=== PATIENT | male | born 1985 | race Two or more races ===

== ENCOUNTER 2024-04-15 05:35 | Emergency (ER) | payer SELFPAY ==
[~2024-04-15] VITALS: Ht 188 cm; Wt 133.8 kg
[2024-04-15] MEDS ORDERED: ACETAMINOPHEN ES 500 MG TABLET ONE ×2 (06:34→06:57)
[2024-04-15] MEDS: IV NS 0.9% 1,000 ML BAG IV ONE (06:52)
[2024-04-15] MEDS: ACETAMINOPHEN ES 500 MG TABLET PO ONE (06:52)
[2024-04-15 07:02] LABS: BASOPHILS % (AUTO) 0.3 % (0.0-2.0); EOSINOPHILS # (AUTO) 0.1 K/uL (0.0-0.7); EOSINOPHILS % (AUTO) 0.8 % (0.0-6.0); HEMATOCRIT 44 % (39-51); HEMOGLOBIN 14.6 g/dL (13.5-17.5); LYMPHOCYTES # (AUTO) 1.3 K/uL (0.8-4.8); LYMPHOCYTES % (AUTO) 12.7 % (20.0-44.0); MEAN CORPUSCULAR HEMOGLOBIN 30 PG (26.0-33.0); MEAN CORPUSCULAR HGB CONC 33 g/dl (31.0-36.0); MEAN CORPUSCULAR VOLUME 90 fL (80-96); MONOCYTES # (AUTO) 0.6 K/uL (0.1-1.30); NEUTROPHILS # (AUTO) 8.4 K/uL (1.8-8.9); NEUTROPHILS % (AUTO) 80.2 % (43.0-81.0); PLATELET COUNT (AUTO) 251 K/uL (150-450); RED BLOOD CELL COUNT(AUTO) 4.84 MIL/uL (4.5-6.0); WHITE BLOOD COUNT (AUTO) 10.5 K/uL (4.3-11.0)
[2024-04-15 07:38] LABS: CALCIUM, SERUM 8.7 mg/dL (8.5-10.1); CARBON DIOXIDE 32 mmol/L (21-32); CHLORIDE 102 mmol/L (98-107); GLUCOSE 105 mg/dL (74-106); POTASSIUM 2.8 mmol/L (3.5-5.1); SODIUM SERUM 138 mmol/L (136-145); UREA NITROGEN, BLOOD 14 mg/dL (7-18)
[2024-04-15 07:54] LABS: ALANINE AMINOTRANSFERASE 23 U/L (12-78); ALBUMIN 3.5 g/dL (3.4-5.0); ALCOHOL, BLOOD < 3 mg/dL (0-10); ALKALINE PHOSPHATASE 73 U/L (46-116); ASPARTATE AMINOTRANSFERASE 26 U/L (15-37); BILIRUBIN,DIRECT 0.2 mg/dL (0.0-0.2); TOTAL PROTEIN, SERUM 7.2 g/dL (6.4-8.2)
[2024-04-15] MEDS ORDERED: IV NS 0.9% 250 ML IV ONE (07:58)
[2024-04-15] MEDS ORDERED: IOHEXOL-300 100 ML VIAL IV ONE (07:58)
[2024-04-15] MEDS ORDERED: POTASSIUM CHLORIDE 20 MEQ TAB.PRT.SR PO ONE (08:42)
[2024-04-15] MEDS: POTASSIUM CHLORIDE 20 MEQ TAB.PRT.SR PO ONE (08:54)
[2024-04-15] MEDS ORDERED: CYCL5TAB PO (09:36)
[2024-04-15] MEDS ORDERED: IBUP-1955 PO (09:36)
[2024-04-15] MEDS ORDERED: KETOROLAC TROMETHAMINE INJ 30 MG/ML VIAL ONE (10:20)
[2024-04-15] MEDS ORDERED: KETOROLAC TROMETHAMINE 15 MG/ML VIAL ONE (10:21)
[2024-04-15] MEDS: KETOROLAC TROMETHAMINE 15 MG/ML VIAL IV ONE (10:27)
[2024-04-15 15:32] VITALS: BP 145/81; TEMP 98.4; O2SAT 99
== END 2024-04-15 15:32 | disposition home or self-care (01) ==
LOC: ER 05:37
DX: R07.89 Other chest pain (principal); M54.9 Dorsalgia, unspecified; E87.6 Hypokalemia; R10.9 Unspecified abdominal pain; Z60.2 Problems related to living alone; V89.2XXA Person injured in unspecified motor-vehicle accident, traffic, initial encounter; Y93.89 Activity, other specified; Y92.89 Other specified places as the place of occurrence of the external cause; Y99.8 Other external cause status
CPT/HCPCS: 99285; 96360; 72125; 71260; 70450; 74177; 85025; 80048; 80076; 36415; 80320; J7030; J7050; Q9967; J1885; G0480

== ENCOUNTER 2024-08-14 13:30 | Emergency (ER) | payer MEDICAID, OTHER ==
[~2024-08-14] VITALS: Ht 188 cm; Wt 136.1 kg
[~2024-08-14 13:30] MED LIST: CYCL5TAB PO; IBUP-1955 PO
[2024-08-14] MEDS ORDERED: ERYT3.5O9 EACHEYE (13:36)
[2024-08-14 13:40] VITALS: BP 144/77; TEMP 98; O2SAT 98
== END 2024-08-14 13:56 | disposition home or self-care (01) ==
LOC: ER 13:35
DX: H10.9 Unspecified conjunctivitis (principal); Z79.899 Other long term (current) drug therapy